=== PATIENT | female | born 1955 ===

== ENCOUNTER 2020-01-18 17:57 | Inpatient (IN) | payer BC, OTHER ==
--- NOTE | 2020-01-18 18:27 | PCM.HP.2 ---
H&P History of Present Illness - General Date of Service: 01/18/20 - History of Present Illness Initial Comments - Free Text/Narative: The patient is a 64 year old female with past medical history of CHF, CAD, DM, CKD, HTN, and hyperlipidemia who was directly admitted from the [facility] with worsening pneumonia and hypoxemia. [facility] is not admitting anyone with respiratory symptoms to their hospital. Patient reports she has had worsening shortness of breath and non productive for the past two weeks. She presented to the [facility] ER today with fever/chills, nausea/vomiting, diarrhea (no black/bloody stools), and SOB. She has been seen several times over the past two weeks with two negative COVID tests on 01/09/20 and 01/12/20 and was never started on antibiotics. Denies chest pain. In the [facility] ER, work up revealed no leukocytosis but worsening appearance of bilateral lower lob pneumonia as well as an enlarged heart. She had elevated BUN/Cr but has Stage III CKD. Her UA was negative for infection. Troponin was negative but her BNP was elevated. In [facility] she received a dose of Azithromycin and Rocephin. She was given IVFs. Was satting at 88% on RA improved to 94% with 2 L. PCP- none - Related Data Allergies/Adverse Reactions: Allergies Allergy/AdvReac Type Severity Reaction Status Date / Time valacyclovir [From Valtrex] Allergy Other Verified 04/25/16 18:39 Home Medications: Home Meds . [Unable to Verify Home Med List] 04/25/16 [History] Past Medical History HEENT History: Reports: Cataract Cardiovascular History: Reports: Bypass, High Cholesterol, Hypertension, [place] Respiratory History: Reports: None Gastrointestinal History: Reports: None Genitourinary History: Reports: Chronic Renal Insuffiency [employer] History: Reports: Neurological History: Reports: None Endocrine/Metabolic History: Reports: Diabetes, Type I Hematologic History: Reports: None - Past Surgical History Cardiovascular Surgical History: Reports: Coronary Artery Bypass Female Surgical History: Reports: Tubal Ligation Social & Family History - Family History Family Medical History: Noncontributory - Tobacco Use Smoking Status *Q: Never Smoker - Alcohol Use Alcohol Use History: No - Recreational Drug Use Recreational Drug Use: No H&P Review of Systems - Review of Systems: Review Of Systems: See Below General: Reports: Fever, Chills, Fatigue, Decreased Appetite HEENT: Reports: No Symptoms Pulmonary: Reports: Shortness of Breath, Cough. Denies: Sputum Cardiovascular: Reports: No Symptoms Gastrointestinal: Reports: Diarrhea, Nausea, Vomiting. Denies: Abdominal Pain, Black Stool, Bloody Stool Genitourinary: Reports: No Symptoms Musculoskeletal: Reports: No Symptoms Skin: Reports: No Symptoms Psychiatric: Reports: No Symptoms Neurological: Reports: No Symptoms Hematologic/Lymphatic: Reports: No Symptoms Immunologic: Reports: No Symptoms Exam - Exam Exam: See Below - Vital Signs Vital Signs: Last Vital Signs Temp 100.6 F 01/18/20 18:14 Pulse 82 01/18/20 18:14 Resp 22 H 01/18/20 18:14 BP 162/72 H 01/18/20 18:14 Pulse Ox 94 L 01/18/20 18:14 Weight: 73 kg - Exam General: Alert, Oriented, Cooperative HEENT: Conjunctiva Clear, EOMI, Pupils Equal, Pupils Reactive Lungs: Rhonchi (bases), Wheezing. No: Normal Respiratory Effort Cardiovascular: Regular Rate, Regular Rhythm, Other (murmur) GI/Abdominal Exam: Normal Bowel Sounds, Soft, Non-Tender, No Distention Extremities: Pedal Edema (minimal) Skin: Warm, Dry, Intact Psychiatric: Alert, Normal Affect, Normal Mood - Patient Data Result Diagrams: 01/18/20 18:21 Sepsis Event Note - Focused Exam Vital Signs: Vital Signs Temp Pulse Resp BP Pulse Ox 01/18/20 18:14 100.6 F 82 22 H 162/72 H 94 L Date Exam was Performed: 01/18/20 Time Exam was Performed: 18:46 Problem List Initiated/Reviewed/Updated: Yes Orders Last 24hrs: Active Orders 24 hr Category Date Time Status Intake and Output [RC] ASDIRECTED Care 01/18/20 18:00 Ordered Vital Signs [RC] PER UNIT ROUTINE Care 01/18/20 18:00 Ordered ADA Diabetic [[place] [employer]abetic [employer] Diet] [DIET Diet 01/19/20 Dinner Ordered ] Chest 2V [CR] Routine Exams 01/18/20 18:00 Ordered B-TYPE NATRIURETIC PEPTIDE,BNP [CHEM] Routine Lab 01/18/20 18:01 Ordered CBC WITH AUTO DIFF [HEME] Routine Lab 01/18/20 18:00 Ordered COMPREHENSIVE METABOLIC PN,CMP [CHEM] Routine Lab 01/18/20 18:00 Ordered CORONAVIRUS COVID-19 PCR PHL Stat Lab 01/18/20 18:00 Ordered Assessment/Plan Comment:: 1. Admit as inpatient 2. Code status- full 3. Vitals per routine 4. I/Os per strict 5. Diet- ADA 6. DVT prophylaxis with SCDs 7. Acute hypoxic respiratory failure secondary to CAP- Treat with Rocephin and Azithromycin. Encourage incentive Spirometry. Duonebs prn. Will obtain a rapid COVID test, sputum culture and blood cultures. Will also get CBC, CMP, BNP 8. DMI on insulin pump- continue pump, accuchecks 9. Chronic conditions- CKD, CHF, CAD- continue home meds, gentle hydration, will obtain echocardiogram
[2020-01-18] MEDS ORDERED: Ondansetron 4 MG/2 ML SDV IVPUSH PRN (18:35)
[2020-01-18] MEDS ORDERED: Albuterol/Ipratropium 3.0-0.5 MG/3 ML Neb Soln NEB PRN (18:36)
[2020-01-18] MEDS ORDERED: Sodium Chloride 0.9% 1,000 ML IV SCH (18:45)
[2020-01-18 18:55] LABS: CARBON DIOXIDE,CO2 23.1 mmol/L (21.0-32.0); POTASSIUM,K 3.3 mmol/L (3.5-5.1)
[2020-01-18] MEDS: Acetaminophen 325 MG Tab PO PRN (19:40)
[2020-01-19 06:43] LABS: CARBON DIOXIDE,CO2 23.9 mmol/L (21.0-32.0); POTASSIUM,K 3.3 mmol/L (3.5-5.1)
[2020-01-19] MEDS: Carvedilol 6.25 MG Tab PO SCH ×2 (08:18→21:23)
[2020-01-19] MEDS: Acetaminophen 325 MG Tab PO PRN ×2 (08:18→15:52)
[2020-01-19] MEDS: cefTRIAXone 1 GM in Premix Bag 1 BAG IV SCH (08:45)
[2020-01-19] MEDS: Azithromycin 500 MG in Sodium Chloride 0.9% 250 ML IV SCH (11:06)
--- NOTE | 2020-01-19 12:38 | PCM.PN ---
- General Info Date of Service: 01/19/20 - Review of Systems Systems Review Comment:: feels a little better, reports fatigue and chest congestion, cough improving. - Patient Data Vitals - Most Recent: Last Vital Signs Temp 37.8 C 01/19/20 07:34 Pulse 80 01/19/20 08:18 Resp 16 01/19/20 07:34 BP 141/68 H 01/19/20 08:18 Pulse Ox 92 L 01/19/20 07:34 Weight - Most Recent: 73 kg I&O - Last 24 Hours: Intake & Output 01/18/20 01/19/20 01/19/20 22:59 06:59 14:59 Intake Total 735 Output Total 400 Balance 335 Lab Results Last 24 Hours: Laboratory Results - last 24 hr 01/18/20 01/18/20 01/18/20 Range/Units 18:10 18:21 18:21 WBC 8.57 (4.0-11.0) K/uL RBC 3.24 L (4.30-5.90) M/uL Hgb 9.5 L (12.0-16.0) g/dL Hct 29.5 L (36.0-46.0) % MCV 91.0 (80.0-98.0) fL MCH 29.3 (27.0-32.0) pg MCHC 32.2 (31.0-37.0) g/dL RDW Std Deviation 47.9 (28.0-62.0) fl RDW Coeff of Meliton 14 (11.0-15.0) % Plt Count 457 H (150-400) K/uL MPV 9.60 (7.40-12.00) fL Neut % (Auto) 82.5 H (48.0-80.0) % Lymph % (Auto) 10.5 L (16.0-40.0) % [place] % (Auto) 6.2 (0.0-15.0) % Eos % (Auto) 0.4 (0.0-7.0) % Baso % (Auto) 0.4 (0.0-1.5) % Neut # (Auto) 7.1 H (1.4-5.7) K/uL Lymph # (Auto) 0.9 (0.6-2.4) K/uL [place] # (Auto) 0.5 (0.0-0.8) K/uL Eos # (Auto) 0.0 (0.0-0.7) K/uL Baso # (Auto) 0.0 (0.0-0.1) K/uL Add Manual Diff Neutrophils % (Manual) (48.0-80.0) % Band Neutrophils % % Lymphocytes % (Manual) (16.0-40.0) % Monocytes % (Manual) (0.0-15.0) % Eosinophils % (Manual) (0.0-7.0) % Basophils % (Manual) (0.0-1.5) % Nucleated RBC % 0.0 /100WBC Absolute Seg Neuts (1.4-5.7) Band Neutrophils # Lymphocytes # (Manual) (0.6-2.4) Monocytes # (Manual) (0.0-0.8) Eosinophils # (Manual) (0.0-0.7) Basophils # (Manual) (0.0-0.1) Nucleated RBCs # 0 K/uL Sodium 134 L (136-145) mmol/L Potassium 3.3 L (3.5-5.1) mmol/L Chloride 98 (98-107) mmol/L Carbon Dioxide 23.1 (21.0-32.0) mmol/L BUN 31 H (7.0-18.0) mg/dL Creatinine 1.6 H (0.6-1.0) mg/dL Est Cr Clr Drug Dosing 29.77 mL/min Estimated GFR (MDRD) 32.6 ml/min Glucose 261 H (74-106) mg/dL POC Glucose (60-110) mg/dL Calcium 8.8 (8.5-10.1) mg/dL Total Bilirubin 0.2 (0.2-1.0) mg/dL AST 26 (15-37) IU/L ALT 16 (14-63) IU/L Alkaline Phosphatase 92 (46-116) U/L B-Natriuretic Peptide (<100) PG/ML Total Protein 6.3 L (6.4-8.2) g/dL Albumin 1.8 L (3.4-5.0) g/dL Globulin 4.5 H (2.6-4.0) g/dL Albumin/Globulin Ratio 0.4 L (0.9-1.6) SARS-CoV-2 RNA (RT-PCR) NEGATIVE (NEGATIVE) 01/18/20 01/18/20 01/19/20 Range/Units 18:21 23:24 06:15 WBC 8.02 (4.0-11.0) K/uL RBC 3.15 L (4.30-5.90) M/uL Hgb 9.1 L (12.0-16.0) g/dL Hct 28.5 L (36.0-46.0) % MCV 90.5 (80.0-98.0) fL MCH 28.9 (27.0-32.0) pg MCHC 31.9 (31.0-37.0) g/dL RDW Std Deviation 47.6 (28.0-62.0) fl RDW Coeff of Meliton 14 (11.0-15.0) % Plt Count 421 H (150-400) K/uL MPV 9.40 (7.40-12.00) fL Neut % (Auto) (48.0-80.0) % Lymph % (Auto) (16.0-40.0) % [place] % (Auto) (0.0-15.0) % Eos % (Auto) (0.0-7.0) % Baso % (Auto) (0.0-1.5) % Neut # (Auto) (1.4-5.7) K/uL Lymph # (Auto) (0.6-2.4) K/uL [place] # (Auto) (0.0-0.8) K/uL Eos # (Auto) (0.0-0.7) K/uL Baso # (Auto) (0.0-0.1) K/uL Add Manual Diff YES Neutrophils % (Manual) 69 (48.0-80.0) % Band Neutrophils % 5 % Lymphocytes % (Manual) 17 (16.0-40.0) % Monocytes % (Manual) 6 (0.0-15.0) % Eosinophils % (Manual) 2 (0.0-7.0) % Basophils % (Manual) 1 (0.0-1.5) % Nucleated RBC % 0.0 /100WBC Absolute Seg Neuts 5.5 (1.4-5.7) Band Neutrophils # 0.4 Lymphocytes # (Manual) 1.4 (0.6-2.4) Monocytes # (Manual) 0.5 (0.0-0.8) Eosinophils # (Manual) 0.2 (0.0-0.7) Basophils # (Manual) 0.1 (0.0-0.1) Nucleated RBCs # 0 K/uL Sodium (136-145) mmol/L Potassium (3.5-5.1) mmol/L Chloride (98-107) mmol/L Carbon Dioxide (21.0-32.0) mmol/L BUN (7.0-18.0) mg/dL Creatinine (0.6-1.0) mg/dL Est Cr Clr Drug Dosing mL/min Estimated GFR (MDRD) ml/min Glucose (74-106) mg/dL POC Glucose 221 H (60-110) mg/dL Calcium (8.5-10.1) mg/dL Total Bilirubin (0.2-1.0) mg/dL AST (15-37) IU/L ALT (14-63) IU/L Alkaline Phosphatase (46-116) U/L B-Natriuretic Peptide 561 H (<100) PG/ML Total Protein (6.4-8.2) g/dL Albumin (3.4-5.0) g/dL Globulin (2.6-4.0) g/dL Albumin/Globulin Ratio (0.9-1.6) SARS-CoV-2 RNA (RT-PCR) (NEGATIVE) 01/19/20 01/19/20 Range/Units 06:15 06:23 WBC (4.0-11.0) K/uL RBC (4.30-5.90) M/uL Hgb (12.0-16.0) g/dL Hct (36.0-46.0) % MCV (80.0-98.0) fL MCH (27.0-32.0) pg MCHC (31.0-37.0) g/dL RDW Std Deviation (28.0-62.0) fl RDW Coeff of Meliton (11.0-15.0) % Plt Count (150-400) K/uL MPV (7.40-12.00) fL Neut % (Auto) (48.0-80.0) % Lymph % (Auto) (16.0-40.0) % [place] % (Auto) (0.0-15.0) % Eos % (Auto) (0.0-7.0) % Baso % (Auto) (0.0-1.5) % Neut # (Auto) (1.4-5.7) K/uL Lymph # (Auto) (0.6-2.4) K/uL [place] # (Auto) (0.0-0.8) K/uL Eos # (Auto) (0.0-0.7) K/uL Baso # (Auto) (0.0-0.1) K/uL Add Manual Diff Neutrophils % (Manual) (48.0-80.0) % Band Neutrophils % % Lymphocytes % (Manual) (16.0-40.0) % Monocytes % (Manual) (0.0-15.0) % Eosinophils % (Manual) (0.0-7.0) % Basophils % (Manual) (0.0-1.5) % Nucleated RBC % /100WBC Absolute Seg Neuts (1.4-5.7) Band Neutrophils # Lymphocytes # (Manual) (0.6-2.4) Monocytes # (Manual) (0.0-0.8) Eosinophils # (Manual) (0.0-0.7) Basophils # (Manual) (0.0-0.1) Nucleated RBCs # K/uL Sodium 133 L (136-145) mmol/L Potassium 3.3 L (3.5-5.1) mmol/L Chloride 101 (98-107) mmol/L Carbon Dioxide 23.9 (21.0-32.0) mmol/L BUN 27 H (7.0-18.0) mg/dL Creatinine 1.4 H (0.6-1.0) mg/dL Est Cr Clr Drug Dosing 34.02 mL/min Estimated GFR (MDRD) 38.0 ml/min Glucose 152 H (74-106) mg/dL POC Glucose 152 H (60-110) mg/dL Calcium 8.4 L (8.5-10.1) mg/dL Total Bilirubin (0.2-1.0) mg/dL AST (15-37) IU/L ALT (14-63) IU/L Alkaline Phosphatase (46-116) U/L B-Natriuretic Peptide (<100) PG/ML Total Protein (6.4-8.2) g/dL Albumin (3.4-5.0) g/dL Globulin (2.6-4.0) g/dL Albumin/Globulin Ratio (0.9-1.6) SARS-CoV-2 RNA (RT-PCR) (NEGATIVE) Med Orders - Current: Current Medications Acetaminophen (Tylenol) 650 mg PO Q4H PRN PRN Reason: Pain/Fever Last Admin: 01/19/20 08:18 Dose: 650 mg Albuterol/Ipratropium (Duoneb 3.0-0.5 Mg/3 Ml) 3 ml NEB Q4HRRT PRN PRN Reason: Shortness of Breath Carvedilol (Coreg) 6.25 mg PO BID [facility] Last Admin: 01/19/20 08:18 Dose: 6.25 mg Clopidogrel Bisulfate (Plavix) 75 mg PO BEDTIME [facility] Ezetimibe (Zetia) 10 mg PO BEDTIME [facility] Heparin Sodium (Porcine) (Heparin Sodium) 5,000 units SUBCUT Q12H [facility] Sodium Chloride (Normal Saline) 1,000 mls @ 50 mls/hr IV ASDIRECTED [facility] Last Admin: 01/18/20 19:48 Dose: 50 mls/hr Azithromycin 500 mg/ Sodium (Chloride) 250 mls @ 250 mls/hr IV DAILY [facility] Last Admin: 01/19/20 11:06 Dose: 250 mls/hr Ceftriaxone Sodium/Dextrose 1 (gm/ Premix) 50 mls @ 100 mls/hr IV Q24H [facility] Last Admin: 01/19/20 08:45 Dose: 100 mls/hr Ondansetron HCl (Zofran) 4 mg IVPUSH Q4H PRN PRN Reason: Nausea/Vomiting Simvastatin (Zocor) 40 mg PO BEDTIME [facility] - Exam General: Alert, Oriented HEENT: Pupils Equal Neck: Supple Lungs: Rhonchi GI/Abdominal Exam: Soft, Non-Tender, No Distention Extremities: Non-Tender, No Pedal Edema Skin: Warm, Dry, Intact Neurological: No New Focal Deficit Sepsis Event Note - Evaluation Sepsis Screening Result: No Definite Risk - Focused Exam Vital Signs: Vital Signs Temp Pulse Pulse Resp BP BP Pulse Ox 01/19/20 08:18 80 141/68 H 01/19/20 07:34 37.8 C 80 16 141/68 H 92 L 01/19/20 06:30 38.4 C H 01/19/20 04:00 37.8 C 82 20 135/67 92 L Date Exam was Performed: 01/19/20 Time Exam was Performed: 12:33 - Problem List Review Problem List Initiated/Reviewed/Updated: Yes - My Orders Last 24 Hours: My Active Orders 01/19/20 09:00 carvediloL [Coreg] 6.25 mg PO BID 01/19/20 12:45 Heparin Sodium 5,000 units SUBCUT Q12H 01/19/20 21:00 Clopidogrel [Plavix] 75 mg PO BEDTIME Ezetimibe [Zetia] 10 mg PO BEDTIME Simvastatin [Zocor] 40 mg PO BEDTIME - Plan Plan:: 64 yo female admitted with Community acquired pneumonia. pneumonia: We will continue Rocephin and azithromycin. Patient on supplemental oxygen and will wean as tolerated. COVID test is negative. Cultures pending. Will hold IV fluids for now, consider echocardiogram due to cardiomegaly and increased pulmonary vasculature seen on chest x-ray DMI: continue insulin pump acute on chronic kidney disease: creatinine improved to 1.4
[2020-01-19] MEDS: Heparin Sodium 5,000 Units/ML Vial SUBCUT SCH (12:51)
[2020-01-19] MEDS: Clopidogrel 75 MG Tab PO SCH (21:24)
[2020-01-19] MEDS: Simvastatin 40 MG Tab PO SCH (21:25)
[2020-01-19] MEDS: Ezetimibe 10 MG Tab PO SCH (21:29)
[2020-01-20] MEDS: Acetaminophen 325 MG Tab PO PRN ×2 (00:03→10:38)
[2020-01-20] MEDS: Heparin Sodium 5,000 Units/ML Vial SUBCUT SCH ×2 (00:04→11:59)
[2020-01-20 06:46] LABS: CARBON DIOXIDE,CO2 24.5 mmol/L (21.0-32.0); POTASSIUM,K 3.2 mmol/L (3.5-5.1)
--- NOTE | 2020-01-20 08:22 | PCM.PN ---
<Hawa Childersy - Last Filed: 01/20/20 11:07> - General Info Date of Service: 01/20/20 Subjective Update: Patient reports some improvement, still requiring oxygen but doesn't feel wiped out when going to the bathroom. Appetite returning. - Review of Systems General: Reports: Fever, Fatigue HEENT: Reports: No Symptoms Pulmonary: Reports: Shortness of Breath, Cough Cardiovascular: Reports: No Symptoms Gastrointestinal: Reports: No Symptoms Genitourinary: Reports: No Symptoms Musculoskeletal: Reports: No Symptoms Skin: Reports: No Symptoms Neurological: Reports: No Symptoms Psychiatric: Reports: No Symptoms - Patient Data Vitals - Most Recent: Last Vital Signs Temp 97.6 F 01/20/20 03:45 Pulse 72 01/20/20 03:45 Resp 20 01/20/20 03:45 BP 140/70 01/20/20 03:45 Pulse Ox 95 01/20/20 03:45 Weight - Most Recent: 33.022 kg I&O - Last 24 Hours: Intake & Output 01/19/20 01/20/20 01/20/20 22:59 06:59 14:59 Intake Total 850 840 Output Total 1500 700 Balance -650 140 Lab Results Last 24 Hours: Laboratory Results - last 24 hr 01/19/20 01/19/20 01/19/20 Range/Units 12:30 17:33 21:19 WBC (4.0-11.0) K/uL RBC (4.30-5.90) M/uL Hgb (12.0-16.0) g/dL Hct (36.0-46.0) % MCV (80.0-98.0) fL MCH (27.0-32.0) pg MCHC (31.0-37.0) g/dL RDW Std Deviation (28.0-62.0) fl RDW Coeff of Meliton (11.0-15.0) % Plt Count (150-400) K/uL MPV (7.40-12.00) fL Neut % (Auto) (48.0-80.0) % Lymph % (Auto) (16.0-40.0) % [place] % (Auto) (0.0-15.0) % Eos % (Auto) (0.0-7.0) % Baso % (Auto) (0.0-1.5) % Neut # (Auto) (1.4-5.7) K/uL Lymph # (Auto) (0.6-2.4) K/uL [place] # (Auto) (0.0-0.8) K/uL Eos # (Auto) (0.0-0.7) K/uL Baso # (Auto) (0.0-0.1) K/uL Nucleated RBC % /100WBC Nucleated RBCs # K/uL Sodium (136-145) mmol/L Potassium (3.5-5.1) mmol/L Chloride (98-107) mmol/L Carbon Dioxide (21.0-32.0) mmol/L BUN (7.0-18.0) mg/dL Creatinine (0.6-1.0) mg/dL Est Cr Clr Drug Dosing mL/min Estimated GFR (MDRD) ml/min Glucose (74-106) mg/dL POC Glucose 133 H 138 H 129 H (60-110) mg/dL Calcium (8.5-10.1) mg/dL 01/20/20 01/20/20 01/20/20 Range/Units 06:10 06:10 07:11 WBC 8.08 (4.0-11.0) K/uL RBC 3.15 L (4.30-5.90) M/uL Hgb 9.1 L (12.0-16.0) g/dL Hct 28.8 L (36.0-46.0) % MCV 91.4 (80.0-98.0) fL MCH 28.9 (27.0-32.0) pg MCHC 31.6 (31.0-37.0) g/dL RDW Std Deviation 47.9 (28.0-62.0) fl RDW Coeff of Melitno 14 (11.0-15.0) % Plt Count 409 H (150-400) K/uL MPV 9.40 (7.40-12.00) fL Neut % (Auto) 69.7 (48.0-80.0) % Lymph % (Auto) 18.1 (16.0-40.0) % [place] % (Auto) 8.7 (0.0-15.0) % Eos % (Auto) 2.6 (0.0-7.0) % Baso % (Auto) 0.9 (0.0-1.5) % Neut # (Auto) 5.6 (1.4-5.7) K/uL Lymph # (Auto) 1.5 (0.6-2.4) K/uL [place] # (Auto) 0.7 (0.0-0.8) K/uL Eos # (Auto) 0.2 (0.0-0.7) K/uL Baso # (Auto) 0.1 (0.0-0.1) K/uL Nucleated RBC % 0.0 /100WBC Nucleated RBCs # 0 K/uL Sodium 136 (136-145) mmol/L Potassium 3.2 L (3.5-5.1) mmol/L Chloride 102 (98-107) mmol/L Carbon Dioxide 24.5 (21.0-32.0) mmol/L BUN 21 H (7.0-18.0) mg/dL Creatinine 1.2 H (0.6-1.0) mg/dL Est Cr Clr Drug Dosing 25.01 mL/min Estimated GFR (MDRD) 45.4 ml/min Glucose 105 (74-106) mg/dL POC Glucose 86 (60-110) mg/dL Calcium 8.2 L (8.5-10.1) mg/dL [place] Results Last 24 Hours: Microbiology 01/18/20 19:00 Aerobic Blood Culture - Preliminary Blood - Venous NO GROWTH AFTER 1 DAY Anaerobic Blood Culture - Preliminary NO GROWTH AFTER 1 DAY 01/18/20 19:15 Aerobic Blood Culture - Preliminary Blood - Venous - Lab Draw NO GROWTH AFTER 1 DAY Anaerobic Blood Culture - Preliminary NO GROWTH AFTER 1 DAY Med Orders - Current: Current Medications Acetaminophen (Tylenol) 650 mg PO Q4H PRN PRN Reason: Pain/Fever Last Admin: 01/20/20 00:03 Dose: 650 mg Albuterol/Ipratropium (Duoneb 3.0-0.5 Mg/3 Ml) 3 ml NEB Q4HRRT PRN PRN Reason: Shortness of Breath Last Admin: 01/20/20 00:06 Dose: 3 ml Carvedilol (Coreg) 6.25 mg PO BID [facility] Last Admin: 01/19/20 21:23 Dose: 6.25 mg Clopidogrel Bisulfate (Plavix) 75 mg PO BEDTIME [facility] Last Admin: 01/19/20 21:24 Dose: 75 mg Ezetimibe (Zetia) 10 mg PO BEDTIME [facility] Last Admin: 01/19/20 21:29 Dose: 10 mg Heparin Sodium (Porcine) (Heparin Sodium) 5,000 units SUBCUT Q12H [facility] Last Admin: 01/20/20 00:04 Dose: 5,000 units Azithromycin 500 mg/ Sodium (Chloride) 250 mls @ 250 mls/hr IV DAILY [facility] Last Admin: 01/19/20 11:06 Dose: 250 mls/hr Ceftriaxone Sodium/Dextrose 1 (gm/ Premix) 50 mls @ 100 mls/hr IV Q24H [facility] Last Admin: 01/19/20 08:45 Dose: 100 mls/hr Ondansetron HCl (Zofran) 4 mg IVPUSH Q4H PRN PRN Reason: Nausea/Vomiting Simvastatin (Zocor) 40 mg PO BEDTIME [facility] Last Admin: 01/19/20 21:25 Dose: 40 mg Discontinued Medications Sodium Chloride (Normal Saline) 1,000 mls @ 50 mls/hr IV ASDIRECTED [facility] Last Admin: 01/18/20 19:48 Dose: 50 mls/hr - Exam General: Alert, Oriented, Cooperative Lungs: Normal Respiratory Effort, Crackles (L>R, improving) GI/Abdominal Exam: Normal Bowel Sounds, Soft, Non-Tender, No Distention Extremities: No Pedal Edema Skin: Warm, Dry, Intact Neurological: No New Focal Deficit Psy/Mental Status: Alert, Normal Affect, Normal Mood Sepsis Event Note - Evaluation Sepsis Screening Result: No Definite Risk - Focused Exam Vital Signs: Vital Signs Temp Temp Pulse Pulse Resp BP BP 01/20/20 03:45 97.6 F 72 20 140/70 01/20/20 00:13 20 01/20/20 00:03 100.6 F 01/20/20 00:00 20 01/19/20 23:55 100.6 F 72 20 146/65 H 01/19/20 21:23 66 143/64 H Pulse Ox 01/20/20 03:45 95 01/20/20 00:13 95 01/20/20 00:03 01/20/20 00:00 93 L 01/19/20 23:55 90 L 01/19/20 21:23 Date Exam was Performed: 01/20/20 Time Exam was Performed: 11:07 - Problem List Review Problem List Initiated/Reviewed/Updated: Yes - My Orders Last 24 Hours: My Active Orders 01/19/20 09:00 Azithromycin [Zithromax] 500 mg Sodium Chloride 0.9% [Normal Saline (AdvBag)] 250 ml IV DAILY cefTRIAXone [Rocephin in Dextrose,Iso-Osm 1 GM/50 ML] 1 gm Premix Bag 1 bag IV Q24H 01/19/20 Dinner ADA Diabetic [[place] [employer] Diet] [DIET] - Plan Plan:: 1. Acute hypoxic respiratory failure secondary to CAP- attempt to wean oxygen. Continue with Rocephin and Azithromycin. Encourage incentive Spirometry. Blood cultures negative, unable to provide sputum culture. 2. Acute on chronic kidney disease- improving 3. DMI on insulin pump- continue pump, accuchecks 4. Chronic conditions- CKD, CHF, CAD- continue home meds, will obtain echocardiogram. Will give one time dose of IV Lasix as she received several liters of fluid prior to admission in [place]. 5. Hypokalemia- will replace and recheck in AM <Susu Hernandez - Last Filed: 01/22/20 11:37> - Patient Data Vitals - Most Recent: Last Vital Signs Temp 37.0 C 01/21/20 12:00 Pulse 76 01/21/20 12:00 Resp 16 01/21/20 12:00 BP 150/71 H 01/21/20 12:00 Pulse Ox 97 01/21/20 12:00 Lab Results Last 24 Hours: Laboratory Results - last 24 hr 01/21/20 Range/Units 11:56 POC Glucose 149 H (60-110) mg/dL Todd Results Last 24 Hours: Microbiology 01/18/20 19:00 Aerobic Blood Culture - Preliminary Blood - Venous NO GROWTH AFTER 3 DAYS Anaerobic Blood Culture - Preliminary NO GROWTH AFTER 3 DAYS 01/18/20 19:15 Aerobic Blood Culture - Preliminary Blood - Venous - Lab Draw NO GROWTH AFTER 3 DAYS Anaerobic Blood Culture - Preliminary NO GROWTH AFTER 3 DAYS Med Orders - Current: Current Medications Discontinued Medications Acetaminophen (Tylenol) 650 mg PO Q4H PRN PRN Reason: Pain/Fever Last Admin: 01/21/20 00:03 Dose: 650 mg Albuterol/Ipratropium (Duoneb 3.0-0.5 Mg/3 Ml) 3 ml NEB Q4HRRT PRN PRN Reason: Shortness of Breath Last Admin: 01/20/20 00:06 Dose: 3 ml Azithromycin (Zithromax) 500 mg PO Q24H [facility] Last Admin: 01/21/20 10:14 Dose: 500 mg Carvedilol (Coreg) 6.25 mg PO BID [facility] Last Admin: 01/21/20 10:20 Dose: 6.25 mg Clopidogrel Bisulfate (Plavix) 75 mg PO BEDTIME [facility] Last Admin: 01/20/20 20:35 Dose: 75 mg Ezetimibe (Zetia) 10 mg PO BEDTIME [facility] Last Admin: 01/20/20 20:36 Dose: 10 mg Furosemide (Lasix) 40 mg IVPUSH NOW ONE Stop: 01/20/20 11:07 Last Admin: 01/20/20 11:55 Dose: 40 mg Heparin Sodium (Porcine) (Heparin Sodium) 5,000 units SUBCUT Q12H [facility] Last Admin: 01/21/20 14:00 Dose: Not Given Sodium Chloride (Normal Saline) 1,000 mls @ 50 mls/hr IV ASDIRECTED [facility] Last Admin: 01/18/20 19:48 Dose: 50 mls/hr Azithromycin 500 mg/ Sodium (Chloride) 250 mls @ 250 mls/hr IV DAILY [facility] Last Admin: 01/20/20 10:28 Dose: 250 mls/hr Ceftriaxone Sodium/Dextrose 1 (gm/ Premix) 50 mls @ 100 mls/hr IV Q24H [facility] Last Admin: 01/21/20 10:15 Dose: 100 mls/hr Ondansetron HCl (Zofran) 4 mg IVPUSH Q4H PRN PRN Reason: Nausea/Vomiting Potassium Chloride (Klor-Con M20) 40 meq PO ONETIME ONE Stop: 01/20/20 11:07 Last Admin: 01/20/20 11:58 Dose: 40 meq Potassium Chloride (Klor-Con M20) 40 meq PO ONETIME ONE Stop: 01/20/20 21:01 Last Admin: 01/20/20 20:34 Dose: 40 meq Simvastatin (Zocor) 40 mg PO BEDTIME [facility] Last Admin: 01/20/20 20:34 Dose: 40 mg - Plan Plan:: I have seen and evaluated the patient and agree with the residents note unless specified in my note
[2020-01-20] MEDS: Carvedilol 6.25 MG Tab PO SCH ×2 (08:54→20:35)
[2020-01-20] MEDS: cefTRIAXone 1 GM in Premix Bag 1 BAG IV SCH (08:56)
[2020-01-20] MEDS: Azithromycin 500 MG in Sodium Chloride 0.9% 250 ML IV SCH (10:28)
[2020-01-20] MEDS ORDERED: Furosemide 40 MG/4 ML VIAL IVPUSH ONE (11:06)
[2020-01-20] MEDS ORDERED: Potassium Chloride 20 MEQ Tab.ER PO ONE ×2 (11:06→21:00)
[2020-01-20] MEDS: Simvastatin 40 MG Tab PO SCH (20:34)
[2020-01-20] MEDS: Clopidogrel 75 MG Tab PO SCH (20:35)
[2020-01-20] MEDS: Ezetimibe 10 MG Tab PO SCH (20:36)
[2020-01-21] MEDS: Acetaminophen 325 MG Tab PO PRN (00:03)
[2020-01-21] MEDS: Heparin Sodium 5,000 Units/ML Vial SUBCUT SCH ×2 (00:04→14:00)
[2020-01-21 06:35] LABS: CARBON DIOXIDE,CO2 26.4 mmol/L (21.0-32.0); POTASSIUM,K 3.6 mmol/L (3.5-5.1)
--- NOTE | 2020-01-21 08:50 | PCM.PN ---
- General Info Date of Service: 01/21/20 Subjective Update: The patient reports improvement since last night, currently off oxygen. Reports walking to the bathroom is much easier today. Tolerating oral diet. Afebrile overnight. - Review of Systems General: Reports: No Symptoms HEENT: Reports: No Symptoms Pulmonary: Reports: Cough. Denies: Shortness of Breath Cardiovascular: Reports: No Symptoms Gastrointestinal: Reports: No Symptoms Genitourinary: Reports: No Symptoms Musculoskeletal: Reports: No Symptoms Skin: Reports: No Symptoms Neurological: Reports: No Symptoms Psychiatric: Reports: No Symptoms - Patient Data Vitals - Most Recent: Last Vital Signs Temp 97.7 F 01/21/20 04:00 Pulse 70 01/21/20 04:00 Resp 20 01/21/20 04:00 BP 151/64 H 01/21/20 04:00 Pulse Ox 94 L 01/21/20 04:00 Weight - Most Recent: 71.486 kg I&O - Last 24 Hours: Intake & Output 01/20/20 01/21/20 01/21/20 22:59 06:59 14:59 Intake Total 500 540 Output Total 1400 1000 Balance -900 -460 Lab Results Last 24 Hours: Laboratory Results - last 24 hr 01/20/20 01/20/20 01/20/20 Range/Units 12:08 17:22 21:21 WBC (4.0-11.0) K/uL RBC (4.30-5.90) M/uL Hgb (12.0-16.0) g/dL Hct (36.0-46.0) % MCV (80.0-98.0) fL MCH (27.0-32.0) pg MCHC (31.0-37.0) g/dL RDW Std Deviation (28.0-62.0) fl RDW Coeff of Meliton (11.0-15.0) % Plt Count (150-400) K/uL MPV (7.40-12.00) fL Neut % (Auto) (48.0-80.0) % Lymph % (Auto) (16.0-40.0) % [place] % (Auto) (0.0-15.0) % Eos % (Auto) (0.0-7.0) % Baso % (Auto) (0.0-1.5) % Neut # (Auto) (1.4-5.7) K/uL Lymph # (Auto) (0.6-2.4) K/uL [place] # (Auto) (0.0-0.8) K/uL Eos # (Auto) (0.0-0.7) K/uL Baso # (Auto) (0.0-0.1) K/uL Nucleated RBC % /100WBC Nucleated RBCs # K/uL Sodium (136-145) mmol/L Potassium (3.5-5.1) mmol/L Chloride (98-107) mmol/L Carbon Dioxide (21.0-32.0) mmol/L BUN (7.0-18.0) mg/dL Creatinine (0.6-1.0) mg/dL Est Cr Clr Drug Dosing mL/min Estimated GFR (MDRD) ml/min Glucose (74-106) mg/dL POC Glucose 147 H 148 H 226 H (60-110) mg/dL Calcium (8.5-10.1) mg/dL 01/21/20 01/21/20 01/21/20 Range/Units 05:35 05:35 06:14 WBC 7.96 (4.0-11.0) K/uL RBC 3.10 L (4.30-5.90) M/uL Hgb 9.0 L (12.0-16.0) g/dL Hct 28.3 L (36.0-46.0) % MCV 91.3 (80.0-98.0) fL MCH 29.0 (27.0-32.0) pg MCHC 31.8 (31.0-37.0) g/dL RDW Std Deviation 47.6 (28.0-62.0) fl RDW Coeff of Meliton 14 (11.0-15.0) % Plt Count 438 H (150-400) K/uL MPV 9.50 (7.40-12.00) fL Neut % (Auto) 65.1 (48.0-80.0) % Lymph % (Auto) 23.2 (16.0-40.0) % [place] % (Auto) 7.9 (0.0-15.0) % Eos % (Auto) 2.8 (0.0-7.0) % Baso % (Auto) 1.0 (0.0-1.5) % Neut # (Auto) 5.2 (1.4-5.7) K/uL Lymph # (Auto) 1.9 (0.6-2.4) K/uL [place] # (Auto) 0.6 (0.0-0.8) K/uL Eos # (Auto) 0.2 (0.0-0.7) K/uL Baso # (Auto) 0.1 (0.0-0.1) K/uL Nucleated RBC % 0.0 /100WBC Nucleated RBCs # 0 K/uL Sodium 140 (136-145) mmol/L Potassium 3.6 (3.5-5.1) mmol/L Chloride 106 (98-107) mmol/L Carbon Dioxide 26.4 (21.0-32.0) mmol/L BUN 20 H (7.0-18.0) mg/dL Creatinine 1.2 H (0.6-1.0) mg/dL Est Cr Clr Drug Dosing 39.69 mL/min Estimated GFR (MDRD) 45.4 ml/min Glucose 165 H (74-106) mg/dL POC Glucose 175 H (60-110) mg/dL Calcium 8.4 L (8.5-10.1) mg/dL Todd Results Last 24 Hours: Microbiology 01/18/20 19:00 Aerobic Blood Culture - Preliminary Blood - Venous NO GROWTH AFTER 2 DAYS Anaerobic Blood Culture - Preliminary NO GROWTH AFTER 2 DAYS 01/18/20 19:15 Aerobic Blood Culture - Preliminary Blood - Venous - Lab Draw NO GROWTH AFTER 2 DAYS Anaerobic Blood Culture - Preliminary NO GROWTH AFTER 2 DAYS Med Orders - Current: Current Medications Acetaminophen (Tylenol) 650 mg PO Q4H PRN PRN Reason: Pain/Fever Last Admin: 01/21/20 00:03 Dose: 650 mg Albuterol/Ipratropium (Duoneb 3.0-0.5 Mg/3 Ml) 3 ml NEB Q4HRRT PRN PRN Reason: Shortness of Breath Last Admin: 01/20/20 00:06 Dose: 3 ml Azithromycin (Zithromax) 500 mg PO Q24H [facility] Carvedilol (Coreg) 6.25 mg PO BID [facility] Last Admin: 01/20/20 20:35 Dose: 6.25 mg Clopidogrel Bisulfate (Plavix) 75 mg PO BEDTIME COUNT INCLUDES THE [facility] Last Admin: 01/20/20 20:35 Dose: 75 mg Ezetimibe (Zetia) 10 mg PO BEDTIME COUNT INCLUDES THE [facility] Last Admin: 01/20/20 20:36 Dose: 10 mg Heparin Sodium (Porcine) (Heparin Sodium) 5,000 units SUBCUT Q12H COUNT INCLUDES THE [facility] Last Admin: 01/21/20 00:04 Dose: 5,000 units Ceftriaxone Sodium/Dextrose 1 (gm/ Premix) 50 mls @ 100 mls/hr IV Q24H COUNT INCLUDES THE [facility] Last Admin: 01/20/20 08:56 Dose: 100 mls/hr Ondansetron HCl (Zofran) 4 mg IVPUSH Q4H PRN PRN Reason: Nausea/Vomiting Simvastatin (Zocor) 40 mg PO BEDTIME COUNT INCLUDES THE [facility] Last Admin: 01/20/20 20:34 Dose: 40 mg Discontinued Medications Furosemide (Lasix) 40 mg IVPUSH NOW ONE Stop: 01/20/20 11:07 Last Admin: 01/20/20 11:55 Dose: 40 mg Sodium Chloride (Normal Saline) 1,000 mls @ 50 mls/hr IV ASDIRECTED COUNT INCLUDES THE [facility] Last Admin: 01/18/20 19:48 Dose: 50 mls/hr Azithromycin 500 mg/ Sodium (Chloride) 250 mls @ 250 mls/hr IV DAILY COUNT INCLUDES THE [facility] Last Admin: 01/20/20 10:28 Dose: 250 mls/hr Potassium Chloride (Klor-Con M20) 40 meq PO ONETIME ONE Stop: 01/20/20 11:07 Last Admin: 01/20/20 11:58 Dose: 40 meq Potassium Chloride (Klor-Con M20) 40 meq PO ONETIME ONE Stop: 01/20/20 21:01 Last Admin: 01/20/20 20:34 Dose: 40 meq - Exam Quality Assessment: No: Supplemental Oxygen General: Alert, Oriented, Cooperative Lungs: Normal Respiratory Effort, Crackles (bases) GI/Abdominal Exam: Normal Bowel Sounds, Soft, Non-Tender, No Distention Extremities: No Pedal Edema Skin: Warm, Dry, Intact Neurological: No New Focal Deficit Psy/Mental Status: Alert, Normal Affect, Normal Mood Sepsis Event Note - Evaluation Sepsis Screening Result: No Definite Risk - Focused Exam Vital Signs: Vital Signs Temp Pulse Resp BP Pulse Ox 01/21/20 04:00 97.7 F 70 20 151/64 H 94 L 01/21/20 00:00 98.4 F 76 19 165/70 H 95 Date Exam was Performed: 01/21/20 Time Exam was Performed: 08:48 - My Orders Last 24 Hours: My Active Orders 01/21/20 18:45 Echo Comp wo Cont [US] Stat - Plan Plan:: 1. Acute hypoxic respiratory failure secondary to CAP- attempt to wean oxygen. Continue with Rocephin and Azithromycin. Encourage incentive Spirometry. Blood cultures negative, unable to provide sputum culture. 2. Acute on chronic kidney disease- improving 3. DMI on insulin pump- continue pump, accuchecks 4. Chronic conditions- CKD, CHF, CAD- continue home meds, will obtain echocardiogram. Will give one time dose of IV Lasix as she received several liters of fluid prior to admission in [place]. 5. Hypokalemia- will replace and recheck in AM
[2020-01-21] MEDS ORDERED: Azithromycin 250 MG Tab PO SCH (09:00)
[2020-01-21] MEDS: cefTRIAXone 1 GM in Premix Bag 1 BAG IV SCH (10:15)
[2020-01-21] MEDS: Carvedilol 6.25 MG Tab PO SCH (10:20)
--- NOTE | 2020-01-21 12:14 | PCM.DCSUM1 ---
<Tere Childers - Last Filed: 01/21/20 12:11> Discharge Summary - Hospital Course HPI Initial Comments: Admission Date: 01/18/20 Discharge Date: 01/21/20 Admission Diagnosis: 1. Acute hypoxic respiratory failure secondary to CAP 2. Acute on chronic kidney disease 3. DMI on insulin pump 4. Chronic conditions- CHF, CAD Discharge Diagnosis: 1. Acute hypoxic respiratory failure secondary to CAP- resolved 2. Acute on chronic kidney disease-improved 3. DMI on insulin pump 4. Chronic conditions- CHF, CAD 5. Hypokalemia- resolved Procedures: None Consults: None Hospital Course: The patient is a 64 year old female with past medical history of CHF, CAD, DM, CKD, HTN, and hyperlipidemia who was directly admitted from the [place] ER with worsening pneumonia and hypoxemia. In the [facility] ER, work up revealed no leukocytosis but worsening appearance of bilateral lower lob pneumonia as well as an enlarged heart. She had elevated BUN/Cr but has Stage III CKD. Her UA was negative for infection. Troponin was negative but her BNP was elevated. In [facility] she received a dose of Azithromycin and Rocephin. She was given IVFs. Was satting at 88% on RA improved to 94% with 2 L. She was admitted for acute hypoxic respiratory failure. She was treated with IV antibiotics and eventually she was able to be weaned off oxygen. She was initially given IVF in the [facility] ER and when she was admitted, her kidney function improved but then fluids were held due to CHF hx. She did receive a dose of Lasix as she thought she was retaining too much fluid. Echo was completed but results were pending at time of discharge. Her potassium was replaced, and hypokalemia resolved. By day of discharge, her symptoms had resolved, she was satting well on room air at rest and with activity, and she was fine with discharge. Disposition: Home Discharge Condition: vitals stable, tolerating oral diet, ambulating without difficulty, symptom improvement Discharge Instructions: regular diet as tolerated, activity as tolerated, take medications as prescribed. Symptoms to report to physician include fever/chills , chest pain, shortness of breath, abdominal pain, erythema, drainage/discharge , or not improving as expected. Discharge Medications: Acyclovir [Zovirax] 400 mg PO BEDTIME Calcium Citrate/Vitamin D3 [Calcium Citrate - Vit D3 Tab] 1 each PO PCDINNER Calcium Citrate/Vitamin D3 [Calcium Citrate - Vit D3 Tab] 2 tab PO DAILY Calcium Citrate/Vitamin D3 [Calcium Citrate - Vit D3 Tab] 2 tab PO DAILY Clopidogrel Bisulfate [Clopidogrel] 75 mg PO BEDTIME Ezetimibe 10 mg PO BEDTIME Multivit-Min/Iron/Folic Acid/K [Bariatric Mv-Iron 45 mg Cap] 1 cap PO DAILY Simvastatin 40 mg PO BEDTIME amLODIPine Besylate [Amlodipine Besylate] 5 mg PO DAILY carvediloL [Carvedilol] 6.25 mg PO BID lisinopriL [Lisinopril] 10 mg PO DAILY Amoxicillin 1,000 mg PO TID Azithromycin 500 mg PO DAILY Follow-up: PCPJolly - Discharge Data Discharge Date: 01/21/20 Discharge Disposition: Home, Self-Care 01 Condition: Good - Referral to Home Health Primary Care Physician: PCP None - Patient Instructions Diet: Usual Diet as Tolerated Activity: As Tolerated Showering/Bathing: May Shower Notify Provider of: Fever, Increased Pain, Swelling and Redness, Drainage, Nausea and/or Vomiting Other/Special Instructions: Additional symptoms include chest pain, shortness of breath, or abdominal pain. - Discharge Plan *PRESCRIPTION DRUG MONITORING PROGRAM REVIEWED*: No *COPY OF PRESCRIPTION DRUG MONITORING REPORT IN PATIENT DONAL: No Prescriptions/Med Rec: Amoxicillin 1,000 mg PO TID 3 Days #18 tab Azithromycin 500 mg PO DAILY 3 Days #3 tablet Home Medications: Home Meds Acyclovir [Zovirax] 400 mg PO BEDTIME 01/18/20 [History] Calcium Citrate/Vitamin D3 [Calcium Citrate - Vit D3 Tab] 1 each PO PCDINNER [History] Calcium Citrate/Vitamin D3 [Calcium Citrate - Vit D3 Tab] 2 tab PO DAILY [History] Calcium Citrate/Vitamin D3 [Calcium Citrate - Vit D3 Tab] 2 tab PO DAILY [History] Clopidogrel Bisulfate [Clopidogrel] 75 mg PO BEDTIME 01/18/20 [History] Ezetimibe 10 mg PO BEDTIME 01/18/20 [History] Multivit-Min/Iron/Folic Acid/K [Bariatric Mv-Iron 45 mg Cap] 1 cap PO DAILY [History] Simvastatin 40 mg PO BEDTIME 01/18/20 [History] amLODIPine Besylate [Amlodipine Besylate] 5 mg PO DAILY 01/18/20 [History] carvediloL [Carvedilol] 6.25 mg PO BID 01/18/20 [History] lisinopriL [Lisinopril] 10 mg PO DAILY 01/18/20 [History] Amoxicillin 1,000 mg PO TID 3 Days #18 tab 01/21/20 [Rx] Azithromycin 500 mg PO DAILY 3 Days #3 tablet 01/21/20 [Rx] Patient Handouts: Amoxicillin capsules or tablets, Azithromycin tablets, Community-Acquired Pneumonia, Adult, [id number] Referrals: Susan Marrero NP [Nurse Practitioner] - 01/31/20 11:00 am - Discharge Summary/Plan Comment DC Time >30 min.: No - Patient Data Vitals - Most Recent: Last Vital Signs Temp 98.1 F 01/21/20 08:00 Pulse 74 01/21/20 10:20 Resp 15 01/21/20 08:00 BP 147/67 H 01/21/20 10:20 Pulse Ox 94 L 01/21/20 08:00 Weight - Most Recent: 71.486 kg I&O - Last 24 hours: Intake & Output 01/20/20 01/21/20 01/21/20 22:59 06:59 14:59 Intake Total 500 540 Output Total 1400 1000 Balance -900 -460 Lab Results - Last 24 hrs: Laboratory Results - last 24 hr 01/20/20 01/20/20 01/20/20 Range/Units 12:08 17:22 21:21 WBC (4.0-11.0) K/uL RBC (4.30-5.90) M/uL Hgb (12.0-16.0) g/dL Hct (36.0-46.0) % MCV (80.0-98.0) fL MCH (27.0-32.0) pg MCHC (31.0-37.0) g/dL RDW Std Deviation (28.0-62.0) fl RDW Coeff of Meliton (11.0-15.0) % Plt Count (150-400) K/uL MPV (7.40-12.00) fL Neut % (Auto) (48.0-80.0) % Lymph % (Auto) (16.0-40.0) % [place] % (Auto) (0.0-15.0) % Eos % (Auto) (0.0-7.0) % Baso % (Auto) (0.0-1.5) % Neut # (Auto) (1.4-5.7) K/uL Lymph # (Auto) (0.6-2.4) K/uL [place] # (Auto) (0.0-0.8) K/uL Eos # (Auto) (0.0-0.7) K/uL Baso # (Auto) (0.0-0.1) K/uL Nucleated RBC % /100WBC Nucleated RBCs # K/uL Sodium (136-145) mmol/L Potassium (3.5-5.1) mmol/L Chloride (98-107) mmol/L Carbon Dioxide (21.0-32.0) mmol/L BUN (7.0-18.0) mg/dL Creatinine (0.6-1.0) mg/dL Est Cr Clr Drug Dosing mL/min Estimated GFR (MDRD) ml/min Glucose (74-106) mg/dL POC Glucose 147 H 148 H 226 H (60-110) mg/dL Calcium (8.5-10.1) mg/dL 01/21/20 01/21/20 01/21/20 Range/Units 05:35 05:35 06:14 WBC 7.96 (4.0-11.0) K/uL RBC 3.10 L (4.30-5.90) M/uL Hgb 9.0 L (12.0-16.0) g/dL Hct 28.3 L (36.0-46.0) % MCV 91.3 (80.0-98.0) fL MCH 29.0 (27.0-32.0) pg MCHC 31.8 (31.0-37.0) g/dL RDW Std Deviation 47.6 (28.0-62.0) fl RDW Coeff of Meliton 14 (11.0-15.0) % Plt Count 438 H (150-400) K/uL MPV 9.50 (7.40-12.00) fL Neut % (Auto) 65.1 (48.0-80.0) % Lymph % (Auto) 23.2 (16.0-40.0) % [place] % (Auto) 7.9 (0.0-15.0) % Eos % (Auto) 2.8 (0.0-7.0) % Baso % (Auto) 1.0 (0.0-1.5) % Neut # (Auto) 5.2 (1.4-5.7) K/uL Lymph # (Auto) 1.9 (0.6-2.4) K/uL [place] # (Auto) 0.6 (0.0-0.8) K/uL Eos # (Auto) 0.2 (0.0-0.7) K/uL Baso # (Auto) 0.1 (0.0-0.1) K/uL Nucleated RBC % 0.0 /100WBC Nucleated RBCs # 0 K/uL Sodium 140 (136-145) mmol/L Potassium 3.6 (3.5-5.1) mmol/L Chloride 106 (98-107) mmol/L Carbon Dioxide 26.4 (21.0-32.0) mmol/L BUN 20 H (7.0-18.0) mg/dL Creatinine 1.2 H (0.6-1.0) mg/dL Est Cr Clr Drug Dosing 39.69 mL/min Estimated GFR (MDRD) 45.4 ml/min Glucose 165 H (74-106) mg/dL POC Glucose 175 H (60-110) mg/dL Calcium 8.4 L (8.5-10.1) mg/dL 01/21/20 Range/Units 11:56 WBC (4.0-11.0) K/uL RBC (4.30-5.90) M/uL Hgb (12.0-16.0) g/dL Hct (36.0-46.0) % MCV (80.0-98.0) fL MCH (27.0-32.0) pg MCHC (31.0-37.0) g/dL RDW Std Deviation (28.0-62.0) fl RDW Coeff of Meliton (11.0-15.0) % Plt Count (150-400) K/uL MPV (7.40-12.00) fL Neut % (Auto) (48.0-80.0) % Lymph % (Auto) (16.0-40.0) % [place] % (Auto) (0.0-15.0) % Eos % (Auto) (0.0-7.0) % Baso % (Auto) (0.0-1.5) % Neut # (Auto) (1.4-5.7) K/uL Lymph # (Auto) (0.6-2.4) K/uL [place] # (Auto) (0.0-0.8) K/uL Eos # (Auto) (0.0-0.7) K/uL Baso # (Auto) (0.0-0.1) K/uL Nucleated RBC % /100WBC Nucleated RBCs # K/uL Sodium (136-145) mmol/L Potassium (3.5-5.1) mmol/L Chloride (98-107) mmol/L Carbon Dioxide (21.0-32.0) mmol/L BUN (7.0-18.0) mg/dL Creatinine (0.6-1.0) mg/dL Est Cr Clr Drug Dosing mL/min Estimated GFR (MDRD) ml/min Glucose (74-106) mg/dL POC Glucose 149 H (60-110) mg/dL Calcium (8.5-10.1) mg/dL MEET Results - Last 24 hrs: Microbiology 01/18/20 19:00 Aerobic Blood Culture - Preliminary Blood - Venous NO GROWTH AFTER 2 DAYS Anaerobic Blood Culture - Preliminary NO GROWTH AFTER 2 DAYS 01/18/20 19:15 Aerobic Blood Culture - Preliminary Blood - Venous - Lab Draw NO GROWTH AFTER 2 DAYS Anaerobic Blood Culture - Preliminary NO GROWTH AFTER 2 DAYS Med Orders - Current: Current Medications Acetaminophen (Tylenol) 650 mg PO Q4H PRN PRN Reason: Pain/Fever Last Admin: 01/21/20 00:03 Dose: 650 mg Albuterol/Ipratropium (Duoneb 3.0-0.5 Mg/3 Ml) 3 ml NEB Q4HRRT PRN PRN Reason: Shortness of Breath Last Admin: 01/20/20 00:06 Dose: 3 ml Azithromycin (Zithromax) 500 mg PO Q24H [facility] Last Admin: 01/21/20 10:14 Dose: 500 mg Carvedilol (Coreg) 6.25 mg PO BID [facility] Last Admin: 01/21/20 10:20 Dose: 6.25 mg Clopidogrel Bisulfate (Plavix) 75 mg PO BEDTIME [facility] Last Admin: 01/20/20 20:35 Dose: 75 mg Ezetimibe (Zetia) 10 mg PO BEDTIME [facility] Last Admin: 01/20/20 20:36 Dose: 10 mg Heparin Sodium (Porcine) (Heparin Sodium) 5,000 units SUBCUT Q12H [facility] Last Admin: 01/21/20 00:04 Dose: 5,000 units Ceftriaxone Sodium/Dextrose 1 (gm/ Premix) 50 mls @ 100 mls/hr IV Q24H [facility] Last Admin: 01/21/20 10:15 Dose: 100 mls/hr Ondansetron HCl (Zofran) 4 mg IVPUSH Q4H PRN PRN Reason: Nausea/Vomiting Simvastatin (Zocor) 40 mg PO BEDTIME [facility] Last Admin: 01/20/20 20:34 Dose: 40 mg Discontinued Medications Furosemide (Lasix) 40 mg IVPUSH NOW ONE Stop: 01/20/20 11:07 Last Admin: 01/20/20 11:55 Dose: 40 mg Sodium Chloride (Normal Saline) 1,000 mls @ 50 mls/hr IV ASDIRECTED [facility] Last Admin: 01/18/20 19:48 Dose: 50 mls/hr Azithromycin 500 mg/ Sodium (Chloride) 250 mls @ 250 mls/hr IV DAILY [facility] Last Admin: 01/20/20 10:28 Dose: 250 mls/hr Potassium Chloride (Klor-Con M20) 40 meq PO ONETIME ONE Stop: 01/20/20 11:07 Last Admin: 01/20/20 11:58 Dose: 40 meq Potassium Chloride (Klor-Con M20) 40 meq PO ONETIME ONE Stop: 01/20/20 21:01 Last Admin: 01/20/20 20:34 Dose: 40 meq <Susu Hernandez - Last Filed: 01/22/20 11:37> Discharge Summary - Hospital Course HPI Initial Comments: I have seen and evaluated the patient and agree with the residents note unless specified in my note - Referral to Home Health Primary Care Physician: PCP None - Patient Data Vitals - Most Recent: Last Vital Signs Temp 37.0 C 01/21/20 12:00 Pulse 76 01/21/20 12:00 Resp 16 01/21/20 12:00 BP 150/71 H 01/21/20 12:00 Pulse Ox 97 01/21/20 12:00 Lab Results - Last 24 hrs: Laboratory Results - last 24 hr 01/21/20 Range/Units 11:56 POC Glucose 149 H (60-110) mg/dL MEET Results - Last 24 hrs: Microbiology 01/18/20 19:00 Aerobic Blood Culture - Preliminary Blood - Venous NO GROWTH AFTER 3 DAYS Anaerobic Blood Culture - Preliminary NO GROWTH AFTER 3 DAYS 01/18/20 19:15 Aerobic Blood Culture - Preliminary Blood - Venous - Lab Draw NO GROWTH AFTER 3 DAYS Anaerobic Blood Culture - Preliminary NO GROWTH AFTER 3 DAYS Med Orders - Current: Current Medications Discontinued Medications Acetaminophen (Tylenol) 650 mg PO Q4H PRN PRN Reason: Pain/Fever Last Admin: 01/21/20 00:03 Dose: 650 mg Albuterol/Ipratropium (Duoneb 3.0-0.5 Mg/3 Ml) 3 ml NEB Q4HRRT PRN PRN Reason: Shortness of Breath Last Admin: 01/20/20 00:06 Dose: 3 ml Azithromycin (Zithromax) 500 mg PO Q24H [facility] Last Admin: 01/21/20 10:14 Dose: 500 mg Carvedilol (Coreg) 6.25 mg PO BID [facility] Last Admin: 01/21/20 10:20 Dose: 6.25 mg Clopidogrel Bisulfate (Plavix) 75 mg PO BEDTIME [facility] Last Admin: 01/20/20 20:35 Dose: 75 mg Ezetimibe (Zetia) 10 mg PO BEDTIME [facility] Last Admin: 01/20/20 20:36 Dose: 10 mg Furosemide (Lasix) 40 mg IVPUSH NOW ONE Stop: 01/20/20 11:07 Last Admin: 01/20/20 11:55 Dose: 40 mg Heparin Sodium (Porcine) (Heparin Sodium) 5,000 units SUBCUT Q12H [facility] Last Admin: 01/21/20 14:00 Dose: Not Given Sodium Chloride (Normal Saline) 1,000 mls @ 50 mls/hr IV ASDIRECTED [facility] Last Admin: 01/18/20 19:48 Dose: 50 mls/hr Azithromycin 500 mg/ Sodium (Chloride) 250 mls @ 250 mls/hr IV DAILY [facility] Last Admin: 01/20/20 10:28 Dose: 250 mls/hr Ceftriaxone Sodium/Dextrose 1 (gm/ Premix) 50 mls @ 100 mls/hr IV Q24H [facility] Last Admin: 01/21/20 10:15 Dose: 100 mls/hr Ondansetron HCl (Zofran) 4 mg IVPUSH Q4H PRN PRN Reason: Nausea/Vomiting Potassium Chloride (Klor-Con M20) 40 meq PO ONETIME ONE Stop: 01/20/20 11:07 Last Admin: 01/20/20 11:58 Dose: 40 meq Potassium Chloride (Klor-Con M20) 40 meq PO ONETIME ONE Stop: 01/20/20 21:01 Last Admin: 01/20/20 20:34 Dose: 40 meq Simvastatin (Zocor) 40 mg PO BEDTIME [facility] Last Admin: 01/20/20 20:34 Dose: 40 mg
[2020-01-21 14:00] VITALS: BP 150/71; PULSE 76
--- NOTE | 2020-01-23 14:09 | ECHO ---
EXAM DATE: 01/18/20 PATIENT'S AGE: 64 The ECHO report can be seen in this patient's EMR (Electronic Medical Record) in the REPORTS section. The report has also been scanned into PACS. ALBERTO
== END 2020-01-21 15:00 | disposition home or self-care (01) | DRG 139 ==
LOC: MW.MS 17:57
PROVIDERS: ADMIT Internal Medicine; ATTEND Internal Medicine
DX: J18.9 Pneumonia, unspecified organism (principal); J96.01 Acute respiratory failure with hypoxia; N17.9 Acute kidney failure, unspecified; I50.9 Heart failure, unspecified; I25.10 Atherosclerotic heart disease of native coronary artery without angina pectoris; E87.6 Hypokalemia; N18.3 Chronic kidney disease, stage 3 (moderate); Z79.899 Other long term (current) drug therapy; Z95.1 Presence of aortocoronary bypass graft; E78.00 Pure hypercholesterolemia, unspecified; I25.2 Old myocardial infarction; E10.22 Type 1 diabetes mellitus with diabetic chronic kidney disease; Z98.51 Tubal ligation status; Z88.8 Allergy status to other drugs, medicaments and biological substances; Z20.828 Contact with and (suspected) exposure to other viral communicable diseases
CPT/HCPCS: 36415; 80048; 80053; 82962; 83880; 85025; 87040; 93306; A9270-GY; J0456; J0696; J1644; J1940; J7030; J7050; J7620-GY; U0002